=== PATIENT | female | born 1945 | race Caucasian/White ===

== ENCOUNTER 2016-08-20 07:59 | Day surgery (SDC) | payer MEDICARE ==
[2016-08-14 10:19] VITALS: BMI 33.9
[~2016-08-20 07:59] MED LIST: LACTATED RINGERS 1,000 ML IV SCH
[2016-08-20 08:44] VITALS: TEMP 98.8
[2016-08-20] MEDS: CYCLOPENTOLATE 1% OPHTH SOLN 2 ML BTL OP ONE ×3 (08:45→09:06)
[2016-08-20] MEDS: FLURBIPROFEN 0.03% OPHTH DROPS 2.5 ML BTL OP ONE ×3 (08:50→09:10)
[2016-08-20] MEDS ORDERED: LIDOCAINE 1% 20 ML VIAL (10MG/ML) FOR IV START INTRADERMA ONE (08:50)
[2016-08-20] MEDS: PHENYLEPHRINE 10% OPHTH DROPS 5 ML BTL OP ONE ×3 (08:53→09:14)
[2016-08-20] MEDS ORDERED: fentaNYL (PF) 50 MCG/ML 2 ML AMP ONE (09:26)
[2016-08-20] MEDS ORDERED: PROPOFOL 10 MG/ML 20 ML VIAL IV ONE (09:26)
[2016-08-20] MEDS ORDERED: MIDAZOLAM 2 MG/2 ML VIAL ONE (09:26)
[2016-08-20] MEDS ORDERED: BALANCED SALT IRRIG SOLN COMB2 15 ML IRRIG.SOLN INTRAOCULA ONE (09:32)
[2016-08-20] MEDS ORDERED: HYALURONATE SODIUM INTRAOCULAR 1 EACH SYRINGE (10MG/ML) INTRAOCULA ONE (09:32)
[2016-08-20] MEDS ORDERED: EPINEPHrine (PF) 0.5 ML in BALANCED SALT IRRIG SOLN COMB2 500 ML IRRIGATION ONE (09:35)
[2016-08-20 10:11] VITALS: BP 111/80; PULSE 65; RESP 18
--- NOTE | 2016-08-20 10:25 | P.OP ---
Date of Procedure: 08/21/16 Preoperative Diagnosis: Postoperative Diagnosis: Procedure(s) Performed: PREOPERATIVE DIAGNOSIS: Cataract, right eye. POSTOPERATIVE DIAGNOSIS: Cataract, right eye. OPERATION: Phacoemulsification cataract, right eye. DESCRIPTION OF PROCEDURE: The patient was taken to the preoperative holding area. Intravenous Propofol was given so as to bring about adequate sedation. The following mixture was given for local anesthesia: 5 mL of 2% lidocaine, 5 mL of 0.75% Marcaine, and 1 mL of Wydase. Approximately 4 mL was injected in the retrobulbar space of the surgical eye. Additional 1 mL was then directed to the temporal area of the surgical eye. This was performed to allow adequate neurological block of the facial muscles. The patient was revived and then taken into the operative room. The patient was prepped and draped in the usual sterile manner for the operative eye. A lid speculum was put into position. The conjunctiva was resected back from the limbus in the 12 o'clock position. Bleeding was controlled with electrocautery. A #69 blade was then used and a half-thickness scleral incision approximately 1-mm posterior to the limbus was made on bare sclera. This was shelved in the clear cornea using a crescent knife. Next a 15-degree blade was used to make a stab incision at the 3 o' clock position at the corneolimbal interface. Keratome blade was then used and the superior wound was extended into the anterior chamber. Viscoelastic was injected into the anterior chamber and to maintain its form. Next, a cystotome was used and a continuous anterior capsulotomy was made without difficulty. Hydrodissection using a blunt cannula and BSS was performed. Phaco probe was then employed and a groove extending from 12 to 6 o'clock in the lens was created. A Mike wand was used through the stab incision so as to perform a divide and conquer technique. Next an irrigation aspiration probe was utilized and any residual cortex was removed from the eye. Again, viscoelastic was injected into the anterior chamber. An Ramon posterior chamber lens implant was placed in the cartridge and injected into the anterior chamber without difficulty. The Tweetminsterey hook was utilized to spin the lens into position and this was again performed without any difficulty. The irrigation and aspiration probe was again employed and any residual viscoelastic was removed from the eye. Then BSS was injected into the limbal stab incision and the anterior chamber re-inflated. The conjunctiva was reapproximated using electrocautery. One drop of 0.25% Timoptic was placed over the corneal along with TobraDex ophthalmic ointment. Two sterile patches and a Contreras eye shield were taped into position. The patient was transported to the recovery room in stable condition. Implants: Pathology: none sent Condition: stable Disposition: same day Indications for Procedure: Operative Findings: Description of Procedure:
[2016-08-20] MEDS ORDERED: BUPIVACAINE (PF) 0.75% 5 ML, LIDOCAINE 4% (PF) 5 ML, HYALURONIDASE, HUMAN RECOMB 150 UNIT MISCELLANE ONE ×3 (23:00)
[2016-08-20] MEDS ORDERED: GENTAMICIN/PREDNISOL AC OPHTH OINT 3.5GM OPHTHALMIC ONE (23:00)
[2016-08-20] MEDS ORDERED: TIMOLOL 0.5% OPHTH SOLN (PF) 0.2 ML DROPERETTE OP ONE (23:00)
== END 2016-08-20 10:30 | disposition home or self-care (01) ==
LOC: OR 07:59
PROVIDERS: ATTEND Ophthalmology
DX: H26.9 Unspecified cataract (principal); E78.5 Hyperlipidemia, unspecified; E07.9 Disorder of thyroid, unspecified; Z79.1 Long term (current) use of non-steroidal anti-inflammatories (NSAID); Z79.899 Other long term (current) drug therapy; Z88.0 Allergy status to penicillin; Z88.8 Allergy status to other drugs, medicaments and biological substances
CPT/HCPCS: 66984; V2632; J2001; J2250; J3470; J0171; J3010; J2704

== ENCOUNTER → 2016-09-18 | Outpatient (CLI) | payer MEDICARE ==
--- NOTE | 2016-09-25 08:11 | MM ---
Reason for exam: screening (asymptomatic). Last mammogram was performed 2 years and 1 month ago. History: Patient is postmenopausal and had first child at age 31. Cancelled Left US Needle Biopsy of the left breast, August 25, 2007. Physical Findings: A clinical breast exam by your physician is recommended on an annual basis and results should be correlated with mammographic findings. MG Screening Mammo w CAD Bilateral CC and MLO view(s) were taken. Prior study comparison: August 26, 2014, bilateral MG screening mammo w CAD. August 02, 2013, bilateral MG screening mammo w CAD. There are scattered fibroglandular densities. No significant changes when compared with prior studies. ASSESSMENT: Benign, BI-RAD 2 RECOMMENDATION: Routine screening mammogram of both breasts in 1 year.
== END | disposition home or self-care (01) ==
LOC: RADMAMWWP 07:11
PROVIDERS: ATTEND Internal Medicine Hematology & Oncology
DX: Z12.31 Encounter for screening mammogram for malignant neoplasm of breast (principal)

== ENCOUNTER 2016-10-15 07:14 | Day surgery (SDC) | payer MEDICARE ==
[2016-10-09 08:29] VITALS: BMI 33.9
[~2016-10-15 07:14] MED LIST changes: +LIDOCAINE 1% 20 ML VIAL (10MG/ML) FOR IV START INTRADERMA PRN
[2016-10-15] MEDS: PHENYLEPHRINE 10% OPHTH DROPS 5 ML BTL OP ONE ×3 (08:34→08:47)
[2016-10-15] MEDS: CYCLOPENTOLATE 1% OPHTH SOLN 2 ML BTL OP ONE ×3 (08:37→08:49)
[2016-10-15] MEDS: FLURBIPROFEN 0.03% OPHTH DROPS 2.5 ML BTL OP ONE ×3 (08:39→08:51)
[2016-10-15 08:46] VITALS: RESP 16; TEMP 97.4
[2016-10-15] MEDS ORDERED: PROPOFOL 10 MG/ML 20 ML VIAL IV ONE (09:09)
[2016-10-15] MEDS ORDERED: EPINEPHrine (PF) 0.5 ML in BALANCED SALT IRRIG SOLN COMB2 500 ML IRRIGATION ONE (09:11)
[2016-10-15] MEDS ORDERED: BALANCED SALT IRRIG SOLN COMB2 15 ML IRRIG.SOLN IRRIGATION ONE (09:12)
[2016-10-15] MEDS ORDERED: HYALURONATE SODIUM INTRAOCULAR 1 EACH SYRINGE (10MG/ML) INTRAOCULA ONE (09:12)
--- NOTE | 2016-10-15 09:30 | P.OP ---
Date of Procedure: 10/15/16 Preoperative Diagnosis: Postoperative Diagnosis: Procedure(s) Performed: PREOPERATIVE DIAGNOSIS: Cataract, left eye. POSTOPERATIVE DIAGNOSIS: Cataract, left eye. OPERATION: Phacoemulsification cataract, left eye. DESCRIPTION OF PROCEDURE: The patient was taken to the preoperative holding area. Intravenous Propofol was given so as to bring about adequate sedation. The following mixture was given for local anesthesia: 5 mL of 2% lidocaine, 5 mL of 0.75% Marcaine, and 1 mL of Wydase. Approximately 4 mL was injected in the retrobulbar space of the surgical eye. Additional 1 mL was then directed to the temporal area of the surgical eye. This was performed to allow adequate neurological block of the facial muscles. The patient was revived and then taken into the operative room. The patient was prepped and draped in the usual sterile manner for the operative eye. A lid speculum was put into position. The conjunctiva was resected back from the limbus in the 12 o'clock position. Bleeding was controlled with electrocautery. A #69 blade was then used and a half-thickness scleral incision approximately 1-mm posterior to the limbus was made on bare sclera. This was shelved in the clear cornea using a crescent knife. Next a 15-degree blade was used to make a stab incision at the 3 o' clock position at the corneolimbal interface. Keratome blade was then used and the superior wound was extended into the anterior chamber. Viscoelastic was injected into the anterior chamber and to maintain its form. Next, a cystotome was used and a continuous anterior capsulotomy was made without difficulty. Hydrodissection using a blunt cannula and BSS was performed. Phaco probe was then employed and a groove extending from 12 to 6 o'clock in the lens was created. A Mike wand was used through the stab incision so as to perform a divide and conquer technique. Next an irrigation aspiration probe was utilized and any residual cortex was removed from the eye. Again, viscoelastic was injected into the anterior chamber. An Ramon posterior chamber lens implant was placed in the cartridge and injected into the anterior chamber without difficulty. The [employer] [place] [employer] (QEEP)ey hook was utilized to spin the lens into position and this was again performed without any difficulty. The irrigation and aspiration probe was again employed and any residual viscoelastic was removed from the eye. Then BSS was injected into the limbal stab incision and the anterior chamber re-inflated. The conjunctiva was reapproximated using electrocautery. One drop of 0.25% Timoptic was placed over the corneal along with TobraDex ophthalmic ointment. Two sterile patches and a Contreras eye shield were taped into position. The patient was transported to the recovery room in stable condition. Implants: Pathology: none sent Condition: stable Disposition: same day Indications for Procedure: Operative Findings: Description of Procedure:
[2016-10-15 09:54] VITALS: BP 121/76; PULSE 60
[2016-10-15] MEDS ORDERED: GENTAMICIN/PREDNISOL AC OPHTH OINT 3.5GM OPHTHALMIC ONE (23:00)
[2016-10-15] MEDS ORDERED: BUPIVACAINE (PF) 0.75% 5 ML, LIDOCAINE 4% (PF) 5 ML, HYALURONIDASE, HUMAN RECOMB 150 UNIT MISCELLANE ONE ×3 (23:00)
[2016-10-15] MEDS ORDERED: TIMOLOL 0.5% OPHTH SOLN (PF) 0.2 ML DROPERETTE OP ONE (23:00)
== END 2016-10-15 10:17 | disposition home or self-care (01) ==
LOC: OR 07:14
PROVIDERS: ATTEND Ophthalmology
DX: H25.12 Age-related nuclear cataract, left eye (principal); E07.9 Disorder of thyroid, unspecified; Z79.899 Other long term (current) drug therapy; Z79.84 Long term (current) use of oral hypoglycemic drugs; Z79.1 Long term (current) use of non-steroidal anti-inflammatories (NSAID); Z88.0 Allergy status to penicillin; Z88.8 Allergy status to other drugs, medicaments and biological substances
CPT/HCPCS: 66984; V2632; J2001; J3470; J0171; J2704

== ENCOUNTER 2017-04-08 10:08 | Inpatient (IN) | payer MEDICARE ==
[2017-03-31 11:57] VITALS: BMI 33.9
--- NOTE | 2017-04-07 09:13 | HP ---
HISTORY AND PHYSICAL CHIEF COMPLAINT: Right shoulder pain. HISTORY OF PRESENT ILLNESS: The patient is a 71-year-old, right-hand dominant, retired female who presents with progressive right shoulder pain, worsening over the past several years. She is having a difficult time with overhead activity and at night. She notes significant stiffness as well. She has tried medications without significant relief. PAST MEDICAL HISTORY: Significant for hypothyroidism, arthritis, bdr-lzbvoat-wmtwouudf diabetes, hypercholesterolemia. PAST SURGICAL HISTORY: Significant for right carpal tunnel release, bilateral knee arthroscopy, left total shoulder arthroplasty, bilateral total hip arthroplasty. CURRENT MEDICATIONS: 1. Synthroid. 2. Simvastatin. 3. Metformin. ALLERGIES: She notes allergies to PENICILLIN. FAMILY HISTORY: Family history is unknown. SOCIAL HISTORY: Significant for previous tobacco use; however, she quit in 1985. REVIEW OF SYSTEMS: Sixteen-point review of systems otherwise reviewed and is noncontributory. PHYSICAL EXAMINATION: On examination, the patient is approximately 5 feet 6 inches, 209 pounds of endomorphic habitus. HEENT exam is nonfocal. Neck is supple. On examination of the right shoulder, she is tender about the anterior glenohumeral joint and subacromial space. There is moderate subacromial crepitus. Active range of motion forward elevation 95 degrees, external rotation with the arm at side 45 degrees, internal rotation to the buttock. Motor strength is 5 minus over 5 for abduction and external rotation. Bender, Neer and Speed tests are positive. Her distal neurovascular appears intact in the right upper extremity. X-rays to include AP, outlet, and axillary views of the right shoulder show severe glenohumeral joint osteoarthrosis with [id number] changes. IMPRESSION: 1. Right severe glenohumeral joint osteoarthrosis. 2. Type 2 diabetes. RECOMMENDATIONS: I talked to the patient at length regarding her treatment options. At this point, she opts to proceed with surgery. We will plan to proceed with right total shoulder arthroplasty. The patient underwent preoperative medical evaluation by Dr. Ibrahim. We will likely institute DVT prophylaxis postoperatively. MMODL / IJN: [id number] /
[~2017-04-08 10:08] MED LIST changes: +ACETAMINOPHEN TAB 500 MG TAB PO ONE; +DEXAMETHASONE SOD PHOSPHATE 10 MG/ML 1 ML VIAL IV ONE; -LACTATED RINGERS 1,000 ML IV SCH; -LIDOCAINE 1% 20 ML VIAL (10MG/ML) FOR IV START INTRADERMA PRN; +MELOXICAM 7.5 MG TAB PO ONE; +MIDAZOLAM 2 MG/2 ML VIAL IV PRN; +MORPHINE SULFATE 2 MG/ML SYRINGE IV PRN; +ONDANSETRON 4 MG/2 ML VIAL IVP ONE; +TRANEXAMIC ACID 1,000 MG in SODIUM CHLORIDE 0.9% 50 ML IVPB ONE; +ceFAZolin IN SWFI 2 GM/20 ML SYRINGE IVP ONE
[2017-04-08 11:05] LABS: Glucose,Whole Blood 107 mg/dL (75-99)
[2017-04-08] MEDS: LACTATED RINGERS 1,000 ML IV SCH (11:05)
[2017-04-08] MEDS ORDERED: LIDOCAINE 1% 20 ML VIAL (10MG/ML) FOR IV START INTRADERMA ONE (11:06)
[2017-04-08] MEDS ORDERED: LIDOCAINE 2%-EPI 1:100,000 20 ML VIAL ONE (12:05)
[2017-04-08] MEDS ORDERED: ROPIVACAINE 5 MG/ML 30 ML VIAL ONE (12:05)
[2017-04-08] MEDS ORDERED: MIDAZOLAM 2 MG/2 ML VIAL ONE (12:05)
[2017-04-08] MEDS ORDERED: fentaNYL (PF) 50 MCG/ML 2 ML AMP ONE (12:05)
[2017-04-08] MEDS ORDERED: PHENYLEPHRINE-0.9% NACL SYG 1 MG/10 ML SYRINGE ONE (12:05)
[2017-04-08] MEDS ORDERED: ROCURONIUM BROMIDE 10 MG/ML 10 ML VIAL IV ONE (12:05)
[2017-04-08] MEDS ORDERED: PROPOFOL 10 MG/ML 20 ML VIAL IV ONE (12:05)
[2017-04-08] MEDS ORDERED: LIDOCAINE 1% INJ 10MG/ML (20 ML MDV) ONE (12:05)
[2017-04-08] MEDS ORDERED: SUCCINYLCHOLINE CHLORIDE 100 MG/5 ML SYR IV ONE (12:05)
[2017-04-08] MEDS ORDERED: CLINDAMYCIN 1,800 MG in SODIUM CHLORIDE 0.9% IRRIGATIO 3,000 ML IRRIGATION ONE (12:42)
[2017-04-08] MEDS ORDERED: LACTATED RINGERS 1,000 ML IV ONE (13:34)
[2017-04-08] MEDS ORDERED: HYDROcodone/APAP 5-325MG 1 EACH TAB PO PRN ×2 (14:01)
[2017-04-08] MEDS ORDERED: HYDROmorphone 0.5 MG/0.5 ML SYRINGE IVP PRN ×2 (14:01)
[2017-04-08] MEDS ORDERED: ONDANSETRON 4 MG/2 ML VIAL IVP PRN (14:01)
--- NOTE | 2017-04-08 14:27 | P.OP ---
Date of Procedure: 04/08/17 Preoperative Diagnosis: Severe right glenohumeral joint osteoarthrosis Postoperative Diagnosis: Same Procedure(s) Performed: Right total shoulder arthroplasty Implants: [employer] size 12 press-fit humeral stem/44 x 21 mm eccentric humeral head, 44 mm cemented pegged glenoid component Anesthesia: ARCENIO, [facility] Surgeon: Danny Dickerson Resident Program Specialist #1: Lico Torres Estimated Blood Loss (ml): 75 Pathology: other (Humeral head) Condition: stable Disposition: PACU Indications for Procedure: The patient is a 71-year-old female who presents with progressive right shoulder pain secondary to osteoarthrosis despite conservative measures. A discussion of the risks and benefits of operative intervention versus continued conservative measures was made with the patient. She opted procedures with surgery. Operative risks to include infection, neurovascular injury, development of blood clots, possible fracture, possible dislocation, possible component loosening and need for subsequent procedures was discussed. Informed consent was obtained. Operative Findings: As below Description of Procedure: The patient was brought to the operating room, and after induction of general anesthesia was placed in a beachchair position. The bony prominences were appropriately padded. I examined the right shoulder. Passively I was able to forward elevate her shoulder to 110. No gross glenohumeral instability was noted. The right upper extremity was prepped and draped in normal fashion. The bony outlines the acromion, distal clavicle, and coracoid process were outlined with a skin marker. A deltopectoral incision was made lateral to the coracoid process extending approximately 12 cm. Skin was incised sharply. Subcu changed tissues were divided bluntly. Electrocautery was used for hemostasis. The deltopectoral interval was identified and the cephalic vein gently retracted laterally with the deltoid. Subdeltoid adhesions were bluntly dissected. A self-retaining retractor was placed. The upper one third of the pectoralis major was released with electrocautery to help facilitate exposure. The clavipectoral fascia was opened and the conjoined tendon gently retracted medially. The biceps was identified in the bicipital groove on removed. The rotator interval was opened. The biceps was tenotomized and lateral retract distally. A lesser tuberosity osteotomy was performed with a sagittal saw. This was then tagged with a #2 Ethibond suture. The capsule was released directly from the humeral neck. The humeral head was then fully exposed. The inferior osteophytes were removed flush with the [place] cortical bone. I then found the humeral canal just medial to the greater tuberosity. This is along with the bicipital groove. The canal was then hand reamed up to a size 12 with good distal fit and chatter. The cutting guide was then placed planning on 30 of retroversion resecting the head at the level of the rotator cuff insertion. The head was then extracted. A neck tectum was placed. Attention was then paid towards preparing the glenoid. A posterior retractor was placed along with an anterior neck retractor. The labrum was released from the 12:00 to 6 o' clock position anteriorly. The posterior labrum was also resected. I was able to obtain adequate glenoid exposure. A guidepin was then placed in the central portion of the glenoid. The glenoid was then reamed down to bleeding bony surface. The central peg hole was drilled. The peripheral guide was placed planning on a 44 mm glenoid. The peripheral peg holes were drilled. There was contained minimal drill holes. A trial 44 mm component was placed and was fully seated. There is good anterior to posterior and inferior to superior fit. The trial component was then removed. The bony surface was dried. The peripheral peg holes were pressurized with cement. Excess cement was removed. The central peg hole was bone grafted. The final 44 mm central peg glenoid was then impacted. This was held in place until the cement had sufficiently hardened. Attention was then again paid towards preparing the proximal humerus. The broach was then inserted in 30 of retroversion and was fully seated. A trial size 12 humeral component was placed in the same orientation and was fully seated. There is good rotational stability. A 44 mm by 21 mm eccentric head was placed in the appropriate orientation. The shoulder was reduced. I felt was stable in flexion and extension with internal and external rotation. I felt there was adequate cheondoism of soft tissue tension. The trial components were then removed. Pulsatile lavage was again utilized. A #2 Ethibond suture was placed lateral for reattachment of the lesser tuberosity. The humeral stem was inserted in 30 of retroversion and was fully seated. Again there was good rotational stability. The head was then placed and oriented appropriately and impacted. The rotator interval was closed with #2 Ethibond suture. The lesser tuberosity was reattached with the previously placed suture. The deltopectoral interval was closed with interrupted 2-0 Vicryl sutures. The subcutaneous tissues were reapproximated with interrupted 2 -0 Vicryl sutures. The skin was reapproximated with 3-0 subcuticular Prolene. Steri-Strips were applied. A sterile dressing was applied in addition to a sling. The patient was awoken from general anesthesia and transferred to recovery room in good condition. Blood loss was estimated at 75 mL. No complications were incurred. Sponge and needle counts were correct at the end the case.
--- NOTE | 2017-04-08 14:52 | XR ---
Limited right shoulder HISTORY: Status post right shoulder arthroplasty Single frontal view of the right shoulder Patient is status post right shoulder arthroplasty. There is anatomic alignment. Acromioclavicular janna int arthropathy changes present. Right lung shows low lung volume. Lucency in the soft tissues compat ible with postop state. IMPRESSION: Orthopedic follow-up.
[2017-04-08 17:53] LABS: Glucose,Whole Blood 120 mg/dL (75-99)
[2017-04-08] MEDS: traMADol 50 MG TAB PO SCH (18:27)
[2017-04-08] MEDS ORDERED: ATORVASTATIN 10 MG TAB PO SCH (21:00)
[2017-04-08 21:11] LABS: Glucose,Whole Blood 124 mg/dL (75-99)
[2017-04-08] MEDS: ceFAZolin IN SWFI 2 GM/20 ML SYRINGE IVP SCH (21:19)
[2017-04-09] MEDS: traMADol 50 MG TAB PO SCH ×5 (00:03→17:02)
[2017-04-09] MEDS: LACTATED RINGERS 1,000 ML IV SCH (01:39)
[2017-04-09] MEDS: ceFAZolin IN SWFI 2 GM/20 ML SYRINGE IVP SCH (04:18)
[2017-04-09] MEDS ORDERED: LEVOTHYROXINE 100 MCG TAB PO SCH (06:30)
[2017-04-09 06:45] LABS: Basophils % (A) 0 %; Eosinophils % (A) 0 %; HCT 42.5 % (34.0-46.0); HGB 13.6 gm/dL (11.4-16.0); Lymphocytes # (A) 1.6 k/uL (1.0-4.8); Lymphocytes % (A) 12 %; MCH 29.1 pg (25.0-35.0); MCHC 32.1 g/dL (31.0-37.0); MCV 90.6 fL (80.0-100.0); Mean Platelet Volume 8.1; Monocytes % (A) 7 %; Neutrophils # (A) 10.6 k/uL (1.3-7.7); Neutrophils % (A) 79 %; Platelet Count 225 k/uL (150-450); RBC 4.68 m/uL (3.80-5.40); RDW 14.6 % (11.5-15.5); WBC 13.3 k/uL (3.8-10.6)
[2017-04-09] MEDS ORDERED: ACETAMINOPHEN TAB 325 MG TAB PO PRN (07:10)
[2017-04-09 07:11] LABS: Glucose,Whole Blood 123 mg/dL (75-99)
[2017-04-09] MEDS ORDERED: ASPIRIN 325 MG TAB PO SCH (09:00)
[2017-04-09] MEDS ORDERED: NON-FORMULARY DRUG (Glucosamine/Chondr Su A Sod [Osteo Bi-Flex Caplet] 1 TAB) PO SCH (09:00)
[2017-04-09] MEDS ORDERED: metFORMIN 500 MG TAB PO SCH (09:00)
[2017-04-09] MEDS ORDERED: RIVAROXABAN 10 MG TAB PO SCH (09:00)
[2017-04-09 09:01] VITALS: PULSE 80
[2017-04-09 11:34] LABS: Glucose,Whole Blood 131 mg/dL (75-99)
--- NOTE | 2017-04-09 12:13 | P.PN ---
Subjective Progress Note Date: 04/09/17 Principal diagnosis: Status post right total shoulder arthroplasty Patient is seen today resting in her hospital bed, she appears comfortable. Her pain is well-controlled. She denies any headaches, lightheadedness, chest pain or shortness of breath Objective - Vital Signs Vital signs: Vital Signs Temp 97.9 F 04/09/17 07:00 Pulse 80 04/09/17 07:00 Resp 18 04/09/17 07:00 BP 126/78 04/09/17 07:00 Pulse Ox 93 L 04/09/17 07:00 Intake & Output 04/08/17 04/09/17 04/09/17 18:59 06:59 18:59 Intake Total 1491 Output Total 305 1225 400 Balance 1186 -1225 -400 Weight 95.254 kg Intake: IV 1251 Oral 240 Output: Urine 230 1225 400 Uretheral (Good) 400 Estimated Blood Loss 75 Other: Voiding Method Indwelling Catheter - Exam Right upper extremity: Left flank pain secondary to incision is clean, dry, and intact. Steri-Strips are in good position. Minimal soft tissue swelling and ecchymosis present over the shoulder. Flexion, extension, rotation is intact in the wrist. Radial pulses 2+. Her sensory exam to light touch is intact. - Labs CBC & Chem 7: 04/09/17 06:07 Labs: Abnormal Lab Results - Last 24 Hours (Table) 04/08/17 04/08/17 04/09/17 Range/Units 17:51 20:52 06:07 WBC 13.3 H (3.8-10.6) k/uL Neutrophils # 10.6 H (1.3-7.7) k/uL POC Glucose (mg/dL) 120 H 124 H (75-99) mg/dL 04/09/17 04/09/17 Range/Units 07:08 11:32 WBC (3.8-10.6) k/uL Neutrophils # (1.3-7.7) k/uL POC Glucose (mg/dL) 123 H 131 H (75-99) mg/dL Assessment and Plan Plan: Assessment: 1. Postop day #1 status post ORIF right total shoulder arthroplasty Plan: 1. Pain control, we'll discharge home on oral medication 2. GI and DVT prophylaxis, discharged home on aspirin 325 mg twice a day for 2 weeks 3. Pendular exercises were discussed 4. Daily dressing changes 5. Utilization of the arm sling 6. Discharge planning: Patient will be discharged home today Time with Patient: Less than 30
--- NOTE | 2017-04-09 12:16 | P.DS ---
Providers Date of admission: 04/08/17 10:08 Expected date of discharge: 04/09/17 Attending physician: Danny Dickerson Consults: 04/08/17 14:01 Consult Physician Routine Consulting Provider: Jorge Luis Ibrahim Consult Reason/Comments: Medical management Do you want consulting provider notified?: Yes Primary care physician: Jorge Luis [place] Hospital Course: Date of admission: 04/08/2017 Date of discharge: 04/09/2017 Admission diagnosis: Status post right total shoulder arthroplasty Discharge diagnosis: Same Attending physician: Dr. Dickerson Surgical procedures: Right total shoulder arthroplasty Brief history: Patient is a 71-year-old female with a history of progressive primary right shoulder osteoarthritis. At this point patient has failed conservative treatment measures and has opted to proceed with a elective right total shoulder arthroplasty. Hospital course: Details of patient's surgery can be found in operative report. Patient tolerated the procedure well and was subsequently transported to orthopedic floor. Patient's orthopeidc and medical care was provided daily. Patient had daily laboratory tests performed for evaluation of overall blood counts. Patient had daily physical therapy to include strengthening range of motion as well as education with walker ambulation. Patient was treated with aspirin for their postoperative DVT prophylaxis during their inpatient stay. Patient was noted to have a relatively uneventful postoperative course. Patient reported satisfactory pain control with oral pain medications by postoperative day 0. Patient showed satisfactory progress with physical therapy. Patient moved steadily through the program and had no difficulty meeting the goals by postoperative day 1. Given patient's otherwise satisfactory course and having met physical therapy goals, plan is to discharge patient home on postoperative day 1. Discharge condition/disposition: Patient will be discharged home in stable condition. Discharge medications: Instructions are given on resumption of patient's normal daily medications per primary care recommendation, in addition patient will be prescribed tramadol 50 mg, [place] 5 mg/325 mg, aspirin 325 mg. Discharge instructions: 1. Wound care and infection precautions, keep incision dry and covered while showering, no lotions, creams, moisturizers. No soaking, tubs, pools, hottubs. Do not scrub over the incision. 2. Pendular exercises, utilize arm sling 3. Ice and elevate when necessary. Do not exceed 20 minutes per hour with ice pack. 4. Utilize compression sleeve until seen at first follow up appointment. 5. Visiting nursing care. 6. Home physical therapy. 7. Pain meds and anticoagulants per prescription. 8. Pain medication has potential to cause constipation. Increase oral fluid and fiber intake. Contact primary care provider if you have not had a bowel movement within 48 hours after discharge 9. No anti-inflammatory medication until discussed at first post operative visit, this including Motrin, Aleve, Mobic, Diclofenac. 10. Follow up in office at 2 weeks postop with John Torres PA-C 11. Follow up with your primary care doctor 7-10 days after discharge. 12. Contact [facility] with any questions, . Procedures: Right total shoulder arthroplasty Patient Condition at Discharge: Good Plan - Discharge Summary Discharge Rx Participant: No New Discharge Prescriptions: New Aspirin 325 mg PO BID #30 tab Hydrocodone/Acetaminophen [[place] 5-325] 1 each PO Q6HR PRN #30 tab PRN Reason: Pain traMADol HCl [Ultram] 50 mg PO Q6H PRN #30 tab PRN Reason: Pain No Action Simvastatin [Zocor] 20 mg PO HS Levothyroxine Sodium [Synthroid] 100 mcg PO DAILY Glucosamine/Chondr Diop A Sod [Osteo Bi-Flex Caplet] 1 tab PO DAILY Naproxen Sodium [Aleve] 220 mg PO DAILY PRN PRN Reason: Pain metFORMIN HCL [Glucophage] 500 mg PO QAM Acetaminophen [Tylenol] 325 mg PO Q6H PRN PRN Reason: Pain Discharge Medication List Glucosamine/Chondr Diop A Sod [Osteo Bi-Flex Caplet] 1 tab PO DAILY 07/03/15 [ History] Levothyroxine Sodium [Synthroid] 100 mcg PO DAILY 07/03/15 [History] Simvastatin [Zocor] 20 mg PO HS 07/03/15 [History] metFORMIN HCL [Glucophage] 500 mg PO QAM 10/09/16 [History] Acetaminophen [Tylenol] 325 mg PO Q6H PRN 03/31/17 [History] Aspirin 325 mg PO BID #30 tab 04/09/17 [Rx] Hydrocodone/Acetaminophen [[place] 5-325] 1 each PO Q6HR PRN #30 tab 04/09/17 [Rx] traMADol HCl [Ultram] 50 mg PO Q6H PRN #30 tab 04/09/17 [Rx] Follow up Appointment(s)/Referral(s): Lico Torres PAC [PHYSICIAN WAREHOUSE PRICING AND INVENTORY CLERK] - 2 Weeks Activity/Diet/Wound Care/Special Instructions: Orthopedic Discharge Instructions: 1. Wound care and infection precautions, keep incision dry and covered while showering, no lotions, creams, moisturizers. No soaking, pools, hot tubs. Do not scrub over incision. 2. Utilize arm sling, pendular exercises 3. Ice and elevate when necessary. Do not exceed 20 minutes per hour with ice pack. 4. Utilize compression sleeve until seen at first follow up appointment. 5. Visiting nursing care. 6. Home physical therapy. 7. Pain meds and anticoagulants per prescription. 8. Pain medication has potential to cause constipation. Increase oral fluid and fiber intake. Contact primary care provider if you have not had a bowel movement within 48 hours after discharge. 9. No anti-inflammatory medication until discussed at first post operative visit, this including Motrin, Aleve, Mobic, Diclofenac. 10. Follow up in office at 2 weeks postop with John Torres PA-C 11. Follow up with your primary care doctor 7-10 days after discharge. 12. Contact [facility] with any questions, . Discharge Disposition: HOME WITH HOME HEALTH SERVICES
[2017-04-09 14:15] LABS: Hemoglobin A1C 6.2 % (4.0-6.0)
[2017-04-09 14:37] VITALS: BP 131/84; RESP 16; TEMP 97.7
[2017-04-09 16:38] LABS: Glucose,Whole Blood 135 mg/dL (75-99)
--- NOTE | 2017-04-09 18:09 | P.CONS ---
History of Present Illness - Reason for Consult Consult date: 04/09/17 Medical management - History of Present Illness The patient is a 71-year-old lady, with multiple but well controlled medical problems. She is a primary care patient of Dr. Ibrahim. She was admitted electively for right shoulder arthroplasty. She underwent surgery yesterday, with good tolerance. Consult was placed for medical management Review of Systems Constitutional: Denies chills, Denies fever Eyes: denies blurred vision, denies pain Ears: deny: decreased hearing, ear discharge, earache, tinnitus Ears, nose, mouth and throat: Denies headache, Denies sore throat Cardiovascular: Denies chest pain, Denies shortness of breath Respiratory: Denies cough Gastrointestinal: Denies abdominal pain, Denies diarrhea, Denies nausea, Denies vomiting Genitourinary: Reports urinary frequency, Denies dysuria, Denies hematuria Menstruation: Reports postmenopausal Musculoskeletal: Reports as per HPI, Reports shooting arm pain Musculoskeletal: right: shoulder pain, shoulder stiffness Integumentary: Denies pruritus, Denies rash Neurological: Denies numbness, Denies weakness Psychiatric: Denies anxiety, Denies depression Endocrine: Denies fatigue, Denies weight change Past Medical History Past Medical History: Hyperlipidemia, Thyroid Disorder Additional Past Medical History / Comment(s): hx migraines, steroid injection in knee 02/26/17 History of Any Multi-Drug Resistant Organisms: None Reported Past Surgical History: Joint Replacement, Orthopedic Surgery, Tubal Ligation Additional Past Surgical History / Comment(s): emani hip and lt shoulder joint replacement, repair of detached retina rt eye, rt carpal tunnel, left knee arthroscopy, emani cataracts Past Anesthesia/Blood Transfusion Reactions: Postoperative Nausea & Vomiting ( PONV) Past Psychological History: No Psychological Hx Reported Smoking Status: Former smoker Past Alcohol Use History: Occasional Additional Past Alcohol Use History / Comment(s): quit smoking 30 yrs ago Past Drug Use History: None Reported - Past Family History Sister(s) Family Medical History: Cancer, Dementia Additional Family Medical History / Comment(s): lung cancer Medications and Allergies Home Medications Medication Instructions Recorded Confirmed Type Glucosamine/Chondr Diop A Sod [Osteo 1 tab PO DAILY 07/03/15 04/08/17 History Bi-Flex Caplet] Levothyroxine Sodium [Synthroid] 100 mcg PO DAILY 07/03/15 04/08/17 History Simvastatin [Zocor] 20 mg PO HS 07/03/15 04/08/17 History metFORMIN HCL [Glucophage] 500 mg PO QAM 10/09/16 04/08/17 History Acetaminophen [Tylenol] 325 mg PO Q6H PRN 03/31/17 04/08/17 History Aspirin 325 mg PO BID #30 tab 04/09/17 Rx Hydrocodone/Acetaminophen [Manson 1 each PO Q6HR PRN #30 tab 04/09/17 Rx 5-325] traMADol HCl [Ultram] 50 mg PO Q6H PRN #30 tab 04/09/17 Rx Allergies Allergy/AdvReac Type Severity Reaction Status Date / Time benzonatate Allergy chest Verified 04/08/17 14:09 tightness, achiness, kidney problems Penicillins Allergy passes out Verified 04/08/17 14:09 atorvastatin [From Lipitor] AdvReac severe pain Verified 04/09/17 07:00 Physical Exam Vitals: Vital Signs Temp Pulse Pulse Pulse Resp BP Pulse Ox 04/09/17 07:00 97.9 F 80 18 126/78 93 L 04/09/17 01:02 97.9 F 73 16 119/79 95 04/08/17 22:34 80 137/86 04/08/17 22:33 137/95 04/08/17 21:25 98 F 04/08/17 21:14 100 16 143/84 96 04/08/17 18:30 123/79 04/08/17 18:00 78 132/84 04/08/17 17:45 78 139/90 04/08/17 17:30 16 157/95 04/08/17 17:15 97.8 F 78 16 135/86 95 04/08/17 16:45 64 16 127/63 95 04/08/17 16:30 71 16 136/83 95 04/08/17 16:17 87 16 136/83 95 04/08/17 16:00 97 16 127/78 95 04/08/17 15:47 77 16 131/78 95 04/08/17 15:30 70 16 128/65 95 04/08/17 15:15 70 16 118/68 95 04/08/17 15:02 56 L 16 132/66 97 04/08/17 14:45 58 L 16 131/70 97 04/08/17 14:30 64 16 133/75 97 04/08/17 14:18 97 F L 80 14 147/83 97 04/08/17 10:50 98.2 F 78 16 139/73 95 Intake and Output 04/08/17 04/09/17 04/09/17 22:59 06:59 14:59 Intake Total 240 Output Total 700 525 400 Balance -460 -525 -400 Intake: Oral 240 Output: Urine 700 525 400 Uretheral (Good) 400 Other: Voiding Method Indwelling Catheter Indwelling Catheter Weight 95.254 kg - Constitutional General appearance: no acute distress - EENT Eyes: EOMI, PERRLA ENT: hearing grossly normal, normal oropharynx - Neck Neck: no lymphadenopathy Thyroid: right: normal size - Respiratory Respiratory: bilateral: CTA - Cardiovascular Rhythm: regular Heart sounds: normal: S1, S2 - Gastrointestinal General gastrointestinal: normal bowel sounds, soft - Integumentary Integumentary: normal - Neurologic Neurologic: CNII-XII intact - Musculoskeletal Right shoulder bandaged, right arm in sling. Decreased range of motion right shoulder postop Musculoskeletal: strength equal bilaterally - Psychiatric Psychiatric: A&O x's 3, appropriate affect Results CBC & Chem 7: 04/09/17 06:07 Labs: Abnormal Lab Results - Last 24 Hours (Table) 04/08/17 04/08/17 04/08/17 Range/Units 10:59 17:51 20:52 WBC (3.8-10.6) k/uL Neutrophils # (1.3-7.7) k/uL POC Glucose (mg/dL) 107 H 120 H 124 H (75-99) mg/dL 04/09/17 04/09/17 Range/Units 06:07 07:08 WBC 13.3 H (3.8-10.6) k/uL Neutrophils # 10.6 H (1.3-7.7) k/uL POC Glucose (mg/dL) 123 H (75-99) mg/dL Assessment and Plan (1) Hypothyroidism Narrative/Plan: The patient is tired studies have been stable in the outpatient setting. Levothyroxine has been resumed. Current Visit: Yes Status: Acute Code(s): E03.9 - HYPOTHYROIDISM, UNSPECIFIED SNOMED Code(s): 71536208 (2) DM (diabetes mellitus) Narrative/Plan: Early, type II, with no peripheral complications. Metformin has been resumed. Accu-Cheks show only mild elevation of glucose in the low 100 range. It is anticipated that this will correct itself as the patient gets further out from her surgery. Insulin coverage is not felt to be required. Current Visit: Yes Status: Acute Code(s): E11.9 - TYPE 2 DIABETES MELLITUS WITHOUT COMPLICATIONS SNOMED Code(s): 88551196 Plan: The patient is on postoperative DVT prophylaxis with aspirin, according to orthopedic protocol. From our standpoint she can be discharged home whenever felt to be appropriate by the orthopedic service. She will continue home medications. She has a follow- up scheduled with Dr. Ibrahim in 09/08
== END 2017-04-09 19:11 | disposition home or self-care (01) | DRG 483 ==
LOC: 2ORMAIN 10:08 → EDSTATUS 11:50 → 3SUR 16:38
PROVIDERS: ADMIT Orthopaedic Surgery; ATTEND Orthopaedic Surgery
PROC: 0RRJ0JZ Replacement of Right Shoulder Joint with Synthetic Substitute, Open Approach (ICD-10-PCS; principal; 2017-04-08 11:50)
DX: M19.011 Primary osteoarthritis, right shoulder (principal); E11.9 Type 2 diabetes mellitus without complications; E03.9 Hypothyroidism, unspecified; E78.00 Pure hypercholesterolemia, unspecified; E78.5 Hyperlipidemia, unspecified; Z79.82 Long term (current) use of aspirin; Z79.899 Other long term (current) drug therapy; Z80.1 Family history of malignant neoplasm of trachea, bronchus and lung; Z87.891 Personal history of nicotine dependence; Z96.643 Presence of artificial hip joint, bilateral; Z79.890 Hormone replacement therapy; Z79.84 Long term (current) use of oral hypoglycemic drugs; Z88.0 Allergy status to penicillin
CPT/HCPCS: 64415; 83036; 85025; 88300

== ENCOUNTER → 2017-08-25 | Outpatient (CLI) | payer MEDICARE ==
--- NOTE | 2017-08-25 10:54 | MR ---
EXAMINATION TYPE: MR knee LT wo con DATE OF EXAM: 08/25/2017 COMPARISON: NONE HISTORY: Radiculopathy, cervical region TECHNIQUE: Multiplanar, multisequence imaging of the left knee is performed without IV contrast. FINDINGS: MEDIAL MENISCUS: There is some oblique signal extending towards inferior articular surface of the pos terior horn medial meniscus. Posterior horn medial meniscus likewise appears small. Fluid signal is a nterior to the expected tip of the posterior horn medial meniscus. Anterior horn of the medial menisc us has a more normal appearance. LATERAL MENISCUS: Anterior and posterior horns are intact without tear. CRUCIATE LIGAMENTS: Anterior cruciate ligament is not identified. There is hyperintense signal throug h the expected anterior cruciate ligament course. The posterior cruciate ligament appears intact. Avery e signal change may be within portions of the posterior cruciate ligament. COLLATERAL LIGAMENTS: There is increased signal adjacent to the medial collateral ligament. Lateral c ollateral ligament appears intact. EXTENSOR MECHANISM: Visualized quadriceps and patellar tendons are intact. EFFUSION: Minimal joint fluid is present. POPLITEAL CYST: No popliteal/mitchell cyst. TRICOMPARTMENT SPACES: There is diffuse narrowing of the joint spaces compatible with degenerative ch nayeli. CARTILAGE: There is thinning of the articular cartilage especially noted along the medial compartment joint space and to a lesser degree lateral compartment joint space. Milder thinning may be at the pa tellofemoral joint space. BONE MARROW SIGNAL: There is focal increased signal within the anterior mid tibial plateau. Small oumou unt of tibial spine increased signal is present laterally and posteriorly. Correlate for contusions. OTHER: No additional significant abnormality is appreciated. IMPRESSION: 1. 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 2. Some mild strain of the posterior cruciate ligament is not excluded. 3. Strain of the medial collateral ligament. 4. Contusion of the mid anterior tibial plateau. Some edema is also present below the tibial spines m ore posteriorly and laterally. 5. Minimal joint effusion. 6. Osteoarthritic degenerative change greatest in the medial compartment. 7. Oblique tear posterior horn medial meniscus
== END | disposition home or self-care (01) ==
LOC: RADMRIMAIN 06:40
PROVIDERS: ATTEND Orthopaedic Surgery
DX: S83.242A Other tear of medial meniscus, current injury, left knee, initial encounter (principal); S80.02XA Contusion of left knee, initial encounter; S83.412A Sprain of medial collateral ligament of left knee, initial encounter; M17.12 Unilateral primary osteoarthritis, left knee

== ENCOUNTER 2017-10-16 09:18 | Day surgery (SDC) | payer MEDICARE ==
[2017-10-10 09:54] VITALS: BMI 36.1
--- NOTE | 2017-10-15 13:36 | HP ---
HISTORY AND PHYSICAL Surgery is 10/16/2017. Evelia Norris is a 72-year-old patient seen with progressive left knee pain. Treatment options were discussed. She elected to proceed with arthroscopy. Consent was obtained. Clearance was provided by Dr. Eugene Alfaro. PAST MEDICAL HISTORY: Hyperlipidemia, hypothyroidism, set-[id number] diabetes. PAST SURGICAL HISTORY: Left total hip arthroplasty, right total hip arthroplasty, left shoulder arthroplasty, bilateral knee arthroscopy, carpal tunnel release. DAILY MEDICATIONS: 1. Synthroid. 2. Simvastatin. 3. Metformin. ALLERGIES: PENICILLIN. SOCIAL HISTORY: Patient denies current tobacco use. PHYSICAL EVALUATION: Physical evaluation left knee: Range of motion is 0 to 120 degrees. There is a mild effusion present. Tenderness medial joint line. Positive medial Julia's. Ligaments are stable. Hip rotation without pain. Distal neurovascular exam intact. X-rays of the left knee reveal osteoarthritic changes. Left knee MRI revealed meniscal tear and osteoarthritis. IMPRESSION: 1. Internal derangement left knee with meniscal tear. 2. Left knee osteoarthritis. PLAN: Left knee arthroscopy with partial meniscectomy and debridement. MMODL / IJN: [id number] /
[~2017-10-16 09:18] MED LIST changes: -ACETAMINOPHEN TAB 500 MG TAB PO ONE; +HYDROmorphone 0.5 MG/0.5 ML SYRINGE IVP PRN; +LACTATED RINGERS 1,000 ML IV SCH; +LIDOCAINE 1% 20 ML VIAL (10MG/ML) FOR IV START INTRADERMA PRN; -MELOXICAM 7.5 MG TAB PO ONE; -MIDAZOLAM 2 MG/2 ML VIAL IV PRN; -MORPHINE SULFATE 2 MG/ML SYRINGE IV PRN; -TRANEXAMIC ACID 1,000 MG in SODIUM CHLORIDE 0.9% 50 ML IVPB ONE
[2017-10-16] MEDS ORDERED: MIDAZOLAM 2 MG/2 ML VIAL ONE (10:39)
[2017-10-16] MEDS ORDERED: HYDROmorphone (PF) 1 MG/ML ONE (10:39)
[2017-10-16] MEDS ORDERED: fentaNYL (PF) 50 MCG/ML 2 ML AMP ONE (10:39)
[2017-10-16] MEDS ORDERED: KETOROLAC 30 MG/ML 1 ML VIAL ONE (10:39)
[2017-10-16] MEDS ORDERED: LIDOCAINE 1% INJ 10MG/ML (20 ML MDV) ONE (10:39)
[2017-10-16] MEDS ORDERED: PROPOFOL 10 MG/ML 20 ML VIAL IV ONE (10:39)
[2017-10-16] MEDS ORDERED: SUCCINYLCHOLINE CHLORIDE VIAL 200 MG/10 ML VIAL IV ONE (10:39)
[2017-10-16 11:04] LABS: Glucose,Whole Blood 110 mg/dL (75-99)
--- NOTE | 2017-10-16 11:31 | P.OP ---
Date of Procedure: 10/16/17 Preoperative Diagnosis: Internal derangement left knee Postoperative Diagnosis: 1. Tear medial and lateral meniscus left knee 2. Grade 3/4 chondromalacia medial femoral condyle left knee 3. 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 Reactive synovitis medial and suprapatellar compartments left knee Procedure(s) Performed: 1. Arthroscopic partial medial and lateral meniscectomy left knee 2. Arthroscopic chondroplasty medial femoral condyle left knee 3. Arthroscopic microfracture medial femoral condyle left knee 4. Arthroscopic chondroplasty femoral sulcus left knee 5. Arthroscopic partial synovectomy medial and suprapatellar compartments left knee Anesthesia: ZAHIDAA, local Surgeon: Eusebio Kalpan Estimated Blood Loss (ml): 8 Pathology: none sent Condition: stable Disposition: PACU Indications for Procedure: 72-year-old patient seen with progressive left knee pain. After having treatment options discussed, she elected to proceed with arthroscopy. Operative Findings: see description of procedure Description of Procedure: Patient was taken to the operative suite. Patient underwent a general anesthetic by the department of anesthesia. Patient was given preoperative antibiotics. The left lower extremity was placed in a well-padded arthroscopic leg stewart. The left leg was prepped and draped in the normal sterile orthopedic fashion. A lateral parapatellar and suprapatellar incision was made. Trochars were inserted. Arthroscopy was initiated. Suprapatellar pouch revealed diffuse thick reactive synovitis. The patellofemoral joint appeared to articulate congruently. There was grade 3 chondromalacia of the femoral sulcus and grade 1/2 chondromalacia of the patella. There osteochondral tears noted in the femoral sulcus.. The scope was guided into the medial gutter. No loose bodies or plica was identified. The scope was then guided into the medial compartment. A medial parapatellar incision was made. Trocar inserted followed by probe. There was a complex tear involving the posterior horn of the medial meniscus. There was an area of grade 4 chondromalacia medial femoral condyle weightbearing surface with osteochondral tears and what appeared to be some exposed bone. There was thick reactive synovitis anteriorly. I performed a partial medial meniscectomy down to stable tissue. I performed a chondroplasty of the medial femoral condyle getting down to stable osteochondral tissue. I performed a partial synovectomy decompressing the thick reactive synovitis anteriorly. I performed a microfracture to the area of exposed bone of the medial femoral condyle penetrating the bone with good bleeding afterwards at the microfracture site. The residual meniscus was stable. The residual osteochondral surface was stable. There appeared be due to good decompression of the thick reactive synovitis anteriorly. Scope and probe were then guided into the intercondylar notch. Cruciates were identified , probed and found to be stable. The scope and probe were then guided into lateral compartment. There was a small radial tear mid body lateral meniscus. There were mild grade 1 chondromalacia changes of the lateral compartment. There was no reactive synovitis present. There were no loose bodies. I performed a partial lateral meniscectomy down to stable tissue. The residual meniscus was probed and found to be stable. The scope was in guided back into the suprapatellar compartment. I introduced a motorized shaver into the suprapatellar compartment. I debrided some piecemeal fragments of meniscus I encountered. I performed a chondroplasty of the femoral sulcus getting down to stable osteochondral tissue. I performed a partial synovectomy decompressing the thick reactive synovitis in the suprapatellar compartment. The residual osteochondral surfaces were probed and found to be stable. There was good decompression of that reactive synovitis. I took one more look on the entire knee, no residual debris. Instruments were now removed from the joint. The joint was infiltrated with .25% Marcaine. Steri-Strips were applied to the portal sites. Sterile dressings were applied. The patient was placed into a HEAVENLY hose. No tourniquet was utilized. The patient was awakened, transferred to a bed and taken to recovery stable satisfactory condition.
[2017-10-16 11:38] VITALS: TEMP 96.7
[2017-10-16 12:31] VITALS: RESP 16
[2017-10-16 12:50] VITALS: BP 134/85; PULSE 73
== END 2017-10-16 13:07 | disposition home or self-care (01) ==
LOC: OR 09:18
PROVIDERS: ATTEND Orthopaedic Surgery
DX: S83.232A Complex tear of medial meniscus, current injury, left knee, initial encounter (principal); S83.282A Other tear of lateral meniscus, current injury, left knee, initial encounter; X58.XXXA Exposure to other specified factors, initial encounter; M94.262 Chondromalacia, left knee; M65.862 Other synovitis and tenosynovitis, left lower leg; M17.12 Unilateral primary osteoarthritis, left knee; M25.462 Effusion, left knee; E03.9 Hypothyroidism, unspecified; E78.5 Hyperlipidemia, unspecified; E11.9 Type 2 diabetes mellitus without complications; E66.9 Obesity, unspecified; Z68.36 Body mass index [BMI] 36.0-36.9, adult; Z79.84 Long term (current) use of oral hypoglycemic drugs; Z79.890 Hormone replacement therapy; Z79.899 Other long term (current) drug therapy; Z88.0 Allergy status to penicillin; Z88.8 Allergy status to other drugs, medicaments and biological substances
CPT/HCPCS: 29880; J2250; J0330; J1100; J2405; J2001; J3010; J1885; J1170; J2704; J0690

== ENCOUNTER → 2017-12-18 | Outpatient (CLI) | payer MEDICARE ==
--- NOTE | 2017-12-19 13:36 | MM ---
Reason for exam: screening (asymptomatic). Last mammogram was performed 1 year and 3 months ago. History: Patient is postmenopausal and had first child at age 31. Cancelled Left US Needle Biopsy of the left breast, August 25, 2007. Physical Findings: A clinical breast exam by your physician is recommended on an annual basis and results should be correlated with mammographic findings. MG Screening Mammo w CAD Bilateral CC and MLO view(s) were taken. Prior study comparison: September 18, 2016, bilateral MG screening mammo w CAD. August 26, 2014, bilateral MG screening mammo w CAD. There are scattered fibroglandular densities. There is no discrete abnormality. No significant changes when compared with prior studies. ASSESSMENT: Negative, BI-RAD 1 RECOMMENDATION: Routine screening mammogram of both breasts in 1 year.
== END | disposition home or self-care (01) ==
LOC: RADMAMWWP 14:16
PROVIDERS: ATTEND Internal Medicine Hematology & Oncology
DX: Z12.31 Encounter for screening mammogram for malignant neoplasm of breast (principal)
CPT/HCPCS: 77067

== ENCOUNTER → 2018-12-23 | Outpatient (CLI) | payer MEDICARE ==
--- NOTE | 2018-12-23 10:44 | MM ---
Reason for exam: screening (asymptomatic). Last mammogram was performed 1 year ago. History: Patient is postmenopausal and had first child at age 31. Cancelled Left US Needle Biopsy of the left breast, August 25, 2007. Physical Findings: A clinical breast exam by your physician is recommended on an annual basis and results should be correlated with mammographic findings. MG 3D Screening Mammo W/Cad Bilateral CC and MLO view(s) were taken. Prior study comparison: December 18, 2017, bilateral MG screening mammo w CAD. September 18, 2016, bilateral MG screening mammo w CAD. There are scattered fibroglandular densities. There is no discrete abnormality. No significant changes when compared with prior studies. ASSESSMENT: Negative, BI-RAD 1 RECOMMENDATION: Routine screening mammogram of both breasts in 1 year.
== END | disposition home or self-care (01) ==
LOC: RADMAMWWP 06:58
PROVIDERS: ATTEND Internal Medicine Hematology & Oncology
DX: Z12.31 Encounter for screening mammogram for malignant neoplasm of breast (principal); Z85.3 Personal history of malignant neoplasm of breast
CPT/HCPCS: 77063; 77067

== ENCOUNTER → 2020-04-25 | Outpatient (CLI) | payer MEDICARE ==
--- NOTE | 2020-04-26 11:56 | MM ---
Reason for exam: screening (asymptomatic). Last mammogram was performed 1 year and 4 months ago. History: Patient is postmenopausal and had first child at age 31. Cancelled Left US Needle Biopsy of the left breast, August 25, 2007. Physical Findings: A clinical breast exam by your physician is recommended on an annual basis and results should be correlated with mammographic findings. MG 3D Screening Mammo W/Cad Bilateral CC and MLO view(s) were taken. Prior study comparison: December 23, 2018, bilateral MG 3d screening mammo w/cad. December 18, 2017, bilateral MG screening mammo w CAD. There are scattered fibroglandular densities. Stable benign calcifications. There is no discrete abnormality. No significant changes when compared with prior studies. ASSESSMENT: Benign, BI-RAD 2 RECOMMENDATION: Routine screening mammogram of both breasts in 1 year.
== END | disposition home or self-care (01) ==
LOC: RADMAMWWP 09:31
PROVIDERS: ATTEND Internal Medicine Hematology & Oncology
DX: Z12.31 Encounter for screening mammogram for malignant neoplasm of breast (principal)
CPT/HCPCS: 77063; 77067

== ENCOUNTER → 2021-03-27 | Outpatient (CLI) | payer MEDICARE ==
--- NOTE | 2021-03-27 12:37 | US ---
EXAMINATION TYPE: US carotid duplex BILAT DATE OF EXAM: 03/27/2021 COMPARISON: NONE CLINICAL HISTORY: E78.5 Hyperlipidemia. Hyperlipidemia EXAM MEASUREMENTS: RIGHT: Peak Systolic Velocity (PSV) cm/sec ----- Right CCA: 52.4 ----- Right ICA: 66.8 ----- Right ECA: 78.7 ICA/CCA ratio: 1.3 RIGHT: End Diastole cm/sec ----- Right CCA: 14.0 ----- Right ICA: 25.8 ----- Right ECA: 11.7 LEFT: Peak Systolic Velocity (PSV) cm/sec ----- Left CCA: 63.3 ----- Left ICA: 63.1 ----- Left ECA: 58.1 ICA/CCA ratio: 1.0 LEFT: End Diastole cm/sec ----- Left CCA: 18.8 ----- Left ICA: 30.3 ----- Left ECA: 11.0 VERTEBRALS (direction of flow): Right Vertebral: Antegrade Left Vertebral: Antegrade Rhythm: Normal Within right bulb there is a small amount of soft plaque, however no significant stenosis seen bilate rally IMPRESSION: 1. Atheromatous plaquing without significant flow-limiting stenosis. Criteria for Assigning % of Stenosis / Diameter reduction (Estimation based on the indirect measurements of the internal carotid artery velocities (ICA PSV). 1. Normal (no stenosis)=ICA PSV < 125 cm/s: ratio < 2.0: ICA EDV<40 cm/s. 2. Less than 50% stenosis=ICA PSV < 125 cm/s: ratio < 2.0: ICA EDV<40 cm/s. 3. 50 to 69% stenosis=ICA PSV of 125 to 230 cm/s: ration 2.0 ? 4.0: ICA EDV 40-100 cm/s. 4. Greater than 70% stenosis to near occlusion= ICA PSV > 230 cm/s: ratio > 4.0: ICA EDV > 100 cm/s. 5. Near occlusion= ICA PSV velocities may be low or undetectable: variable ratio and ICA EDV. 6. Total occlusion=unable to detect flow.
== END | disposition home or self-care (01) ==
LOC: RADUSWWP 12:03
PROVIDERS: ATTEND Internal Medicine Hematology & Oncology
DX: I70.8 Atherosclerosis of other arteries (principal); E78.5 Hyperlipidemia, unspecified
CPT/HCPCS: 93880

== ENCOUNTER → 2021-05-01 | Outpatient (CLI) | payer MEDICARE ==
--- NOTE | 2021-05-02 09:01 | MM ---
Reason for exam: screening (asymptomatic). Last mammogram was performed 1 year ago. History: Patient is postmenopausal and had first child at age 31. Cancelled Left US Needle Biopsy of the left breast, August 25, 2007. Physical Findings: A clinical breast exam by your physician is recommended on an annual basis and results should be correlated with mammographic findings. MG 3D Screening Mammo W/Cad Bilateral CC and MLO view(s) were taken. Prior study comparison: April 25, 2020, bilateral MG 3d screening mammo w/cad. December 23, 2018, bilateral MG 3d screening mammo w/cad. The breast tissue is heterogeneously dense. This may lower the sensitivity of mammography. There is no discrete abnormality. No significant changes when compared with prior studies. ASSESSMENT: Negative, BI-RAD 1 RECOMMENDATION: Routine screening mammogram of both breasts in 1 year.
== END | disposition home or self-care (01) ==
LOC: RADMAMWWP 07:33
PROVIDERS: ATTEND Internal Medicine Hematology & Oncology
DX: Z12.31 Encounter for screening mammogram for malignant neoplasm of breast (principal); Z78.0 Asymptomatic menopausal state
CPT/HCPCS: 77063; 77067

== ENCOUNTER → 2023-05-05 | Outpatient (CLI) | payer MEDICARE ==
--- NOTE | 2023-05-06 22:23 | MM ---
Reason for Exam: Screening (asymptomatic). Last screening mammogram was performed 12 month(s) ago. Patient History: Menarche at age 12. First Full-Term at age 31. Late child-bearing (after 30). Postmenopausal. 08/25/2007, Cancelled Left US Needle Biopsy on the left side. Risk Values: Filomena 5 year model risk: 2.4%. NCI Lifetime model risk: 4.6%. Prior Study Comparison: 04/25/2020 Bilateral Screening Mammogram, [facility]. 05/01/2021 Bilateral Screening Mammogram, [facility]. 05/02/2022 Bilateral MG 3D screening mammo w/cad, [facility]. Tissue Density: There are scattered fibroglandular densities. Findings: Analyzed By CAD. Small benign bilateral oil cyst calcifications. There is no suspicious group of microcalcifications or new suspicious mass in either breast. Overall Assessment: Benign, BI-RAD 2 Management: Screening Mammogram of both breasts in 1 year. . Patient should continue monthly self-breast exams. A clinical breast exam by your physician is recommended on an annual basis. This exam should not preclude additional follow-up of suspicious palpable abnormalities. Note on Filomena scores and lifetime risk: 1. A Filomena score greater than 3% is considered moderate risk. If this is the case, consider specialist referral to assess eligibility for a risk reducing agent. 2. If overall lifetime risk for the development of breast cancer is 20% or higher, the patient may qualify for future screening with alternating mammogram and breast MRI. Electronically signed and approved by: Etienne Das M.D. Radiologist
== END | disposition home or self-care (01) ==
LOC: RADMAMWWP 11:09
PROVIDERS: ATTEND Internal Medicine Hematology & Oncology
DX: Z12.31 Encounter for screening mammogram for malignant neoplasm of breast (principal); Z78.0 Asymptomatic menopausal state; E03.9 Hypothyroidism, unspecified; E78.5 Hyperlipidemia, unspecified; M15.9 Polyosteoarthritis, unspecified; I65.29 Occlusion and stenosis of unspecified carotid artery
CPT/HCPCS: 77063; 77067

== ENCOUNTER → 2024-06-17 | Outpatient (CLI) | payer MEDICARE ==
--- NOTE | 2024-06-24 13:42 | MM ---
Reason for Exam: Screening (asymptomatic). Last mammogram was performed 1 year(s) and 1 month(s) ago. Patient History: Menarche at age 12. First Full-Term at age 31. Late child-bearing (after 30). Postmenopausal. Patient has history of breast feeding. 08/25/2007, Cancelled Left US Needle Biopsy on the left side. Risk Values: Filomena 5 year model risk: 2.4%. NCI Lifetime model risk: 4.3%. Prior Study Comparison: 12/18/2017 Bilateral Screening Mammogram, [facility]. 12/23/2018 Bilateral Screening Mammogram, [facility]. 04/25/2020 Bilateral Screening Mammogram, [facility]. 05/01/2021 Bilateral Screening Mammogram, [facility]. 05/02/2022 Bilateral MG 3D screening mammo w/cad, [facility]. 05/05/2023 Bilateral MG 3D screening mammo w/cad, [facility]. Tissue Density: The breasts are heterogeneously dense, which may obscure small masses. Findings: Analyzed By CAD. There is no suspicious group of microcalcifications or new suspicious mass in either breast. Benign appearing calcification calcifications. Overall Assessment: Benign, BI-RAD 2 Management: Screening Mammogram of both breasts in 1 year. . Patient should continue monthly self-breast exams. A clinical breast exam by your physician is recommended on an annual basis. This exam should not preclude additional follow-up of suspicious palpable abnormalities. Note on Filomena scores and lifetime risk: 1. A Filomena score greater than 3% is considered moderate risk. If this is the case, consider specialist referral to assess eligibility for a risk reducing agent. 2. If overall lifetime risk for the development of breast cancer is 20% or higher, the patient may qualify for future screening with alternating mammogram and breast MRI. [facility], , 06/17/2024 8:09 AM. Electronically signed and approved by: Dario Mccormick M.D. Radiologis
== END | disposition home or self-care (01) ==
LOC: RADMAMWWP 07:06
PROVIDERS: ATTEND Family Medicine
DX: Z12.31 Encounter for screening mammogram for malignant neoplasm of breast (principal); R92.333 Mammographic heterogeneous density, bilateral breasts; R92.1 Mammographic calcification found on diagnostic imaging of breast; Z78.0 Asymptomatic menopausal state
CPT/HCPCS: 77063; 77067